=== PATIENT | male | born 1980 | race Two or more races ===

== ENCOUNTER 2020-11-03 18:14 | Emergency (ER) | payer OTHER ==
[~2020-11-03] VITALS: Ht 170.2 cm; Wt 81.6 kg
[2020-11-03] MEDS ORDERED: NORFLEX100MG PO (19:29)
[2020-11-03] MEDS ORDERED: KETO10TA2 PO (19:29)
== END 2020-11-03 21:10 | disposition home or self-care (01) ==
LOC: ER 18:14
DX: M25.511 Pain in right shoulder (principal)

== ENCOUNTER → 2024-08-05 | Day surgery (SDC) | payer OTHER ==
[2024-08-04 09:51] VITALS: BP 122/80
[2024-08-04 10:36] LABS: INR 1.02; PARTIAL THROMBOPLASTIN TIME 32.7 SECONDS (22.0-34.0); PROTHROMBIN TIME 11.1 SECONDS (9.0-11.5)
[2024-08-04 11:04] LABS: HEMATOCRIT 46.8 % (39.0-48.0); HEMOGLOBIN 15.8 g/dL (13-16.00); MEAN CELL VOLUME 83.2 fL (80.0-100.00); MEAN CORPUSCULAR HEMOGLOBIN 28.2 pg (27.00-32.0); MEAN CORPUSCULAR HGB CONC 33.9 g/dl (32.0-36.0); PLATELET COUNT 264 K/uL (150-450); RED BLOOD COUNT 5.62 M/uL (4.00-6.00); RED CELL DISTRIBUTION WIDTH 13.6 % (11.5-14.5)
[2024-08-04 11:18] LABS: URINE APPEARANCE CLEAR; URINE BILIRRUBIN NEGATIVE (NEGATIVE); URINE COLOR YELLOW; URINE GLUCOSE NEGATIVE (NEGATIVE); URINE KETONE NEGATIVE (NEGATIVE); URINE PROTEIN NEGATIVE (NEGATIVE)
[2024-08-04 11:19] LABS: URINE BACTERIA 3.6 uL (0.0-1933); URINE EPITHELIAL CELLS 0.4 uL (0.0-38.8); URINE LEUKOCYTE NEGATIVE; URINE NITRATE NEGATIVE; URINE RBC 13.5 uL (0.0-20.8); URINE UROBILINOGEN 0.2 E.U./dl; URINE WBC 0.9 uL (0.0-23.2)
[2024-08-04 11:20] LABS: URINE BLOOD NEGATIVE; URINE CAST 0.14 uL (0.0-1.40)
[2024-08-04 12:32] LABS: ALBUMIN 3.7 gm/dL (3.4-5.0); BILIRUBIN TOTAL 0.38 mg/dL (0.3-1.2); CALCIUM 9.5 mg/dL (8.5-10.1); CREATININE SERUM 0.95 mg/dL (0.70-1.30); GFR 86.12; GLOBULINA 3.7 G/DL (2.4-3.5); POTASSIUM 4.71 mEq/L (3.5-5.1); TOTAL PROTEIN 7.4 gm/dL (6.4-8.2)
[~2024-08-05] VITALS: Ht 175.3 cm; Wt 88.0 kg
[~2024-08-05] MED LIST: CEFAZOLIN SODIUM 1,000 MG VIAL ONE; KETO10TA2 PO; NORFLEX100MG PO
== END | disposition home or self-care (01) ==
LOC: CIR.AMB 06:25
PROVIDERS: ATTEND Orthopaedic Surgery Hand Surgery
DX: S62.012A Displaced fracture of distal pole of navicular [scaphoid] bone of left wrist, initial encounter for closed fracture (principal); Z88.1 Allergy status to other antibiotic agents

== ENCOUNTER 2025-02-02 09:00 | Day surgery (SDC) | payer OTHER ==
[2025-01-26 08:43] VITALS: BP 110/70
[2025-01-26 09:15] LABS: URINE APPEARANCE Clear; URINE BILIRRUBIN Negative (NEGATIVE); URINE BLOOD Negative; URINE COLOR Yellow; URINE GLUCOSE Negative (NEGATIVE); URINE KETONE Negative (NEGATIVE); URINE LEUKOCYTE Negative; URINE NITRATE Negative; URINE PROTEIN Negative (NEGATIVE); URINE UROBILINOGEN 1.0 E.U./dl
[2025-01-26 09:16] LABS: URINE RBC 14.8 uL (0.0-20.8); URINE WBC 1.9 uL (0.0-23.2)
[2025-01-26 09:21] LABS: BASO % 0.8 % (0.1-1.2); EOS # 0.16 (0.04-0.54); EOS % 2.6 % (0.7-7.0); LYMPH # 2.26 (1.18-3.74); LYMPH % 36.7 % (19.3-53.1); MEAN PLATELET VOLUME 9.70 fl (9.4-12.4); MONO # 0.61 (0.24-0.82); MONO % 9.9 % (4.7-12.5); NEUT # 3.07 (1.56-6.13); NEUT % 49.8 % (34.0-71.1); RED CELL DISTRIBUTION WIDTH 12.6 % (11.6-14.4)
[2025-01-26 09:26] LABS: URINE BACTERIA 3.5 uL (0.0-1933); URINE CAST 0.00 uL (0.0-1.40); URINE EPITHELIAL CELLS 0.7 uL (0.0-38.8)
[2025-01-26 09:46] LABS: INR 1.05
[2025-01-26 09:47] LABS: ALT/SGPT 32.0 U/L (12-78); AST/SGOT 15.0 U/L (15-37); BILIRUBIN TOTAL 0.43 mg/dL (0.3-1.2); BUN CREA RATIO 17.0 (7.0-25.0); CREATININE SERUM 0.94 mg/dL (0.70-1.30); GFR 87.18; GLOBULINA 3.5 G/DL (2.4-3.5); GLUCOSE FASTING 96.0 mg/dL (65-100); OSMOLALITY SERUM 280.0 MOSM/KG (275-295)
[~2025-02-02] VITALS: Ht 175.3 cm; Wt 88.5 kg
[~2025-02-02 09:00] MED LIST changes: -CEFAZOLIN SODIUM 1,000 MG VIAL ONE
[2025-02-02] MEDS ORDERED: CEFAZOLIN SODIUM 1,000 MG VIAL ONE (10:50)
[2025-02-02] MEDS ORDERED: POVIDONE-IODINE 118 ML BOTT TOP ONE (12:09)
[2025-02-02] MEDS ORDERED: SUGAMMADEX SODIUM 200 MG/2 ML VIAL IV ONE (12:09)
== END 2025-02-02 17:40 | disposition home or self-care (01) ==
LOC: CIR.AMB 09:00
PROVIDERS: ATTEND Surgery
DX: K40.20 Bilateral inguinal hernia, without obstruction or gangrene, not specified as recurrent (principal); K42.0 Umbilical hernia with obstruction, without gangrene
CPT/HCPCS: 49650; 49594; C1781